=== PATIENT | male | born 1965 | race Caucasian/White ===

== ENCOUNTER 2016-09-01 14:55 | Emergency (ER) | payer SELFPAY ==
[~2016-09-01] VITALS: Ht 177.8 cm; Wt 109.0 kg
[2016-09-01 15:50] LABS: BASOPHIL COUNT 0.1 K/uL (0-0.1); EOSINOPHIL COUNT 0.3 K/uL (0-0.3); HEMATOCRIT 44.8 % (38.0-50.0); IMMATURE GRANULOCYTE (%) 0.3 % (0.0-0.7); IMMATURE GRANULOCYTE COUNT 0.2 K/uL; LYMPHOCYTE COUNT 1.5 K/uL (1.0-2.8); MCH 31.4 PG (29.0-34.0); MCHC 34.4 G/DL (30.0-36.0); MCV 91.2 FL (86-99); MONOCYTE (%) 8.5 % (3-12); MONOCYTE COUNT 0.5 K/uL (0-0.8); NEUTROPHIL (%) 60.2 % (45-76); NEUTROPHIL COUNT 3.6 K/uL (1.8-6.4); PLATELET COUNT 225 K/uL (156-360); RBC DIS.WIDTH-CV 13.2 % (11.8-14.6); RBC DIS.WIDTH-SD 43.1 % (39-53); RED BLOOD COUNT 4.91 M/uL (4.00-5.50)
[2016-09-01 15:58] LABS: CHLORIDE 107 mEq/L (99-109); POTASSIUM 4.5 mEq/L (3.7-5.4)
[2016-09-01 15:59] LABS: SODIUM 140 mEq/L (136-147)
[2016-09-01 16:01] LABS: GLUCOSE 99 mg/dL (70-99)
[2016-09-01 16:02] LABS: ANION GAP 8 MEQ/L (2-14)
[2016-09-01 16:03] LABS: TOTAL BILIRUBIN 0.3 mg/dL (0.0-1.0)
[2016-09-01 16:04] LABS: ALKALINE PHOSPHATASE 46 IU/L (3-129)
[2016-09-01 16:05] LABS: GFR ESTIMATE (CALCULATED) > 59 mL/min/
[2016-09-01 16:06] LABS: UREA NITROGEN (BUN) 9 mg/dL (9-23)
[2016-09-01 16:08] LABS: LIPASE 12 U/L (1.0-51.0)
[2016-09-01] MEDS ORDERED: PERCOCET 5/31 TABLET PO (17:16)
[2016-09-01] MEDS ORDERED: PRILOSEC20 MG PO (17:19)
[2016-09-01 17:35] VITALS: BP 136/88
== END 2016-09-01 17:36 | disposition home or self-care (01) ==
LOC: EME 14:55
PROVIDERS: Emergency Medicine
DX: R10.11 Right upper quadrant pain (principal)
CPT/HCPCS: 76705; 80053; 83690; 85025; 93005; 99281; 99283; J2270; J2405; J3010; J7030